=== PATIENT | male | born 1995 | race Caucasian/White ===

== ENCOUNTER 2023-10-18 16:18 | Outpatient (AMB) | payer OTHER, SELFPAY ==
--- NOTE | 2023-10-18 16:29 | MHC.OFFWIV ---
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 He is complaining of pain and swelling in the basilar joint. PFSH Social History Patient Tobacco Use Status: Never used Tobacco Review of Systems Musc Reports arthralgias and Reports joint swelling Physical Exam Vital Signs: Last Vital Signs Temp 97.7 F 10/18/23 16:34 Pulse 99 10/18/23 16:34 BP 140/90 H 10/18/23 16:34 Pulse Ox 98 10/18/23 16:34 Oxygen Delivery Method Room Air 10/18/23 16:34 BMI result Body Mass Index 38.2 Extrem Other: Physical examination of the left hand reveals moderate effusion around the 1st metacarpophalangeal joint and patient were joint. It is quite tender to palpation. He has full range of motion in his wrist and palpation of the scaphoid was negative. Results Reviewed Results Reviewed: Results of the x-ray were reviewed with the patient that were negative for fracture. Assessment & Plan Assessment & Plan (1) Pain of left thumb: Code(s): M79.645 - Pain in left finger(s) (2) Sprain of left thumb: Code(s): S63.602A - Unspecified sprain of left thumb, initial encounter Plan: The patient was given a thumb spica splint to wear for the next 2 weeks and a note for light duty at work. He will apply ice and do gentle [id number] exercises follow-up with his PCP as needed Plan See plan Orders: Orders XR hand LT min 3V Today M79.645 - Pain in left finger(s) Coding Level of Care Code Est Pt Level 3 (56042) Diagnoses Pain of left thumb M79.645 Sprain of left thumb S63.602A
[2023-10-18 16:34] VITALS: BP 140/90; PULSE 99; TEMP 36.5; O2SAT 98; BMI 38.2
== END 2023-10-18 17:01 | disposition home or self-care (01) ==
PROVIDERS: Visit Provider Physician Assistant Medical
DX: M79.645 Pain in left finger(s) (principal); S63.602A Unspecified sprain of left thumb, initial encounter
CPT/HCPCS: 99213

== ENCOUNTER 2023-10-18 16:44 | Outpatient (REF) | payer OTHER, SELFPAY ==
--- NOTE | ~2023-10-18 | XR_ITS ---
EXAMINATION: XR HAND, LEFT CLINICAL INFORMATION: Left finger pain COMPARISON: None available. TECHNIQUE: PA, lateral, and oblique views of the left hand. FINDINGS: BONES: Bony structures are intact. There is no focal bone destruction or periosteal reaction seen. JOINTS: Alignment of joints is normal. SOFT TISSUE: Soft tissue is normal. No radiopaque foreign body or abnormal air collection is seen. XR/XR hand LT min 3V IMPRESSION: 1. Normal x-rays of left hand. No fracture or dislocation or signs of osteomyelitis are found.
== END 2023-10-18 16:45 | disposition home or self-care (01) ==
LOC: HO.HMGCX 16:44
PROVIDERS: Visit Provider Physician Assistant Medical
DX: M79.645 Pain in left finger(s) (principal)
CPT/HCPCS: 73130

== ENCOUNTER 2024-04-23 09:45 | Outpatient (AMB) | payer OTHER, SELFPAY ==
--- NOTE | 2024-04-23 10:35 | AM.OFFWIN_ITS ---
Intake Vital Signs 04/23/24 10:36 Height 5 ft 7 in Weight 252 lb BMI 39.5 BP 128/84 Blood Pressure Location Rt brachial Position Sitting Pulse 109 H Pulse Source Pulse Oximeter Temp 98.6 F Temp Source Oral Pulse Oximetry (%) 98 Oxygen Delivery Method Room Air Intake Visit Reasons: EP- Lower back pain, cannot stand straight Intake Note: pt c/o Lower back pain. Started 7:30 this morning. After using bathroom at work Patient Tobacco Use Status: Never used Tobacco Allergies No Known Allergies Allergy (Verified 04/23/24 10:36) Do you need a note to return to daycare/school/sports/work: Yes HPI EP- Lower back pain, cannot stand straight HPI Details This note is constructed using voice recognition software. 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 The patient is a 28 year old male who presents to the clinic today with low back pain since this morning when he was getting up from the bathroom. He notes that he fells some pain in his mid lumbar spine region, but he was able to shake it off. He continued on an ended up walking towards going back to work when the pain got worse. He notes that he recently strain his upper shoulder about 3 weeks ago and did take some time off to recover for that, so he would like to be able to return to work if possible. He denies numbness or tingling in his legs, inability to walk. He does report that he is having some difficulty feeling like he can straighten out when he walks. He denies any previous trauma or injury to the area. He took 400 mg ibuprofen and did apply ice to the area with seems to help the pain slightly. [facility] Social History Patient Tobacco Use Status: Never used Tobacco Review of Systems Const All systems reviewed & are unremarkable except as noted in HPI and below Physical Exam Vital Signs: Last Vital Signs Temp 98.6 F 04/23/24 10:36 Pulse 109 H 04/23/24 10:36 BP 128/84 04/23/24 10:36 Pulse Ox 98 04/23/24 10:36 Oxygen Delivery Method Room Air 04/23/24 10:36 BMI result Body Mass Index 39.5 Const General: cooperative, healthy appearing, comfortable, no acute distress and alert Orientation/consciousness: patient oriented x3 Limitations: no limitations Resp Effort & Inspection: normal respiratory effort and able to speak in complete sentences Auscultation: clear to auscultation bilaterally Cardio Jugular venous distension: no JVD Palpation: normal PMI Rate: regular rate Heart sounds: S1 normal heart sound present, S2 normal heart sound present, no click, no gallops, no murmurs and no rubs General: Yes no CVA tenderness Back/Spine/Pelvis Other: Tender to palpation, lumbar region paraspinal muscles right more than left, with increased muscle bulging over the right. Intact lateral rotation, flexion, extension. Negative SLR, negative well SLR. Distal neurovascular exam. Back: no CVA tenderness Skin General skin exam: no rashes or lesions noted, elasticity normal and turgor normal Neuro General: patient oriented x3 Extrem General: Yes normal to inspection, Yes full ROM, Yes capillary refill normal and Yes normal exam except as noted Psych Appearance: grossly normal Mental Status: mental status grossly normal Speech and movement: Normal speech and movement present Affect: normal affect Assessment & Plan Assessment & Plan (1) Lumbar back pain: Code(s): M54.50 - Low back pain, unspecified Plan: Advised use of NSAIDs for symptomatic management, continue heat/ice, and topical muscle rubs as needed. Prescribed muscle relaxer for symptomatic management. Advised rest. Provided letter for light duty for work for the remainder of the week. Advised follow up with worsening symptoms or failure to resolve. Plan See above for full details and plan. Medications: New cyclobenzaprine 10 mg PO BEDTIME 5 days PRN 5 tabs 0RF muscle spasm Coding Level of Care Code Est Pt Level 3 (95332) Diagnoses Lumbar back pain M54.50
[2024-04-23 10:36] VITALS: BP 128/84; PULSE 109; TEMP 37; O2SAT 98; BMI 39.5
== END 2024-04-23 11:37 | disposition home or self-care (01) ==
PROVIDERS: Visit Provider Registered Nurse
DX: M54.50 Low back pain, unspecified (principal)
CPT/HCPCS: 99213

== ENCOUNTER 2024-08-03 09:50 | Outpatient (AMB) | payer OTHER, SELFPAY ==
--- NOTE | 2024-08-03 09:57 | AM.OFFWIN_ITS ---
Intake Vital Signs 08/03/24 09:58 Height 5 ft 7 in Weight 251 lb BMI 39.3 BP 130/90 H Blood Pressure Location Rt brachial Position Sitting Pulse 114 H Pulse Source Pulse Oximeter Pulse Oximetry (%) 98 Oxygen Delivery Method Room Air Intake Visit Reasons: EP ?Ear Infection Intake Note: Patient here for right ear pain that has been bothersome since Tuesday Patient Tobacco Use Status: Never used Tobacco Allergies No Known Allergies Allergy (Verified 08/03/24 10:25) Medication List - Last Reconciled 08/03/24 by Betsy Diaz CNP cyclobenzaprine 10 mg PO BEDTIME PRN 5 days Do you need a note to return to daycare/school/sports/work: Yes HPI HPI Comments History of Present Illness Details 29 yo male presents for sick visit. He i s c/o right ear pain x 5 days that followed a 2 day GI bug w/ nausea and diarrhea. He denies fever, chills, CP, SOB, abdominal pain, nausea or vomiting, changes in bladder. [facility] Social History Patient Tobacco Use Status: Never used Tobacco Review of Systems Const All systems reviewed & are unremarkable except as noted in HPI and below Physical Exam Vital Signs: Last Vital Signs Pulse 114 H 08/03/24 09:58 BP 130/90 H 08/03/24 09:58 Pulse Ox 98 08/03/24 09:58 Oxygen Delivery Method Room Air 08/03/24 09:58 BMI result Body Mass Index 39.3 Const General: cooperative, healthy appearing and no acute distress Orientation/consciousness: patient oriented x3 Limitations: no limitations HEENT Head: Yes normal to inspection and Yes normocephalic Ears: TM normal on the left and unable to visualize TM (Complete opacification of the tympanic membrane ) on the right Face and sinus: Yes sinuses nontender Mouth: Normal oral and palatal mucosa present Eyes General: appearance normal, both eyes and all related structures Neck Neck: Yes normal visual inspection, Yes full ROM, Yes no lymphadenopathy and Yes no meningeal signs Chest Chest palpation & inspection: normal inspection of the chest Resp Effort & Inspection: normal respiratory effort, no cough, no respiratory distress and not tachypneic Auscultation: clear to auscultation bilaterally, no crackles, no rhonchi and no wheezes Cardio Rate: regular rate Rhythm: regular rhythm Heart sounds: S1 normal heart sound present, S2 normal heart sound present and no murmurs Peripheral pulses: Peripheral pulses 2+ throughout GI Palpation (GI): Soft to palpation, nontender and no guarding Auscultation: normoactive bowel sounds General: Yes no CVA tenderness Back/Spine/Pelvis Back: no CVA tenderness Skin General skin exam: no rashes or lesions noted and turgor normal Neuro General: patient oriented x3, gait normal and no meningeal signs Extrem General: Yes normal to inspection, Yes full ROM and Yes capillary refill normal Psych Appearance: well kempt Mental Status: mental status grossly normal Attitude: cooperative Assessment & Plan Assessment & Plan (1) Otitis media due to H1N1 influenza virus: Code(s): J10.83 - Influenza due to other identified influenza virus with otitis media Plan: 29 yo male w/ 5 day right ear pain following GI virus, upon physical exam right ear with Complete opacification of the tympanic membrane. Will treat with 7 day dose of Augmentin bid, encouraged to take w/ food to reduce GI upset. Will also send Rx for debrox gtts to help remove ear wax. Encouraged to return to office, or f/u w/ PCP if symptoms unresolved or worsen. Medications: New amoxicillin-pot clavulanate 875-125 mg 1 tab PO BID 14 tabs 0RF 7 days J10.83 - Influenza due to other identified influenza virus with otitis media carbamide peroxide 6.5% (Debrox) 5 drps otic (ear) right DAILY 15 mL 0RF 4 days H61.21 - Impacted cerumen, right ear Coding Level of Care Code Est Pt Level 3 (58325) Diagnoses Otitis media due to H1N1 influenza virus J83
[2024-08-03 09:58] VITALS: BP 130/90; PULSE 114; O2SAT 98; BMI 39.3
== END 2024-08-03 11:23 | disposition home or self-care (01) ==
PROVIDERS: Visit Provider Nurse Practitioner Acute Care
DX: J10.83 Influenza due to other identified influenza virus with otitis media (principal)

== ENCOUNTER 2025-07-02 14:45 | Emergency (ER) | payer OTHER, SELFPAY ==
--- NOTE | ~2025-07-02 | XR_ITS ---
EXAMINATION: XR LUMBOSACRAL SPINE CLINICAL INFORMATION: back pain COMPARISON: None available. TECHNIQUE: Three views of the lumbosacral spine. FINDINGS: There are 5 nonrib-bearing lumbar segments. Vertebral body height and alignment is preserved. Disc spaces are preserved. No degenerative changes are seen. XR/XR lumbar spine 2-3V IMPRESSION: Unremarkable lumbar spine Electronically signed by: Ernst Bernabe MD 07/02/2025 04:37 PM EDT
--- NOTE | ~2025-07-02 | XR_ITS ---
EXAMINATION: XR THORACIC SPINE CLINICAL INFORMATION: back pain COMPARISON: None available. TECHNIQUE: 3 views of the thoracic spine were obtained. FINDINGS: Mild degenerative changes are present in the midthoracic spine where there are anterior endplate osteophytes. There is mild wedging of a mid thoracic to body. No other deformities are evident. XR/XR thoracic spine 3V IMPRESSION: There is mild wedging of a mid thoracic vertebral body, approximately T7. This is likely chronic and degenerative, but mild compression fracture is not ruled out. Mild multilevel degenerative changes are present in the midthoracic spine. Electronically signed by: Ernst Bernabe MD 07/02/2025 04:39 PM EDT
[2025-07-02 14:57] VITALS: BP 143/87; PULSE 103; RESP 18; TEMP 36.7; O2SAT 97; BMI 39.3
--- NOTE | 2025-07-02 15:29 | ED.GENADULT ---
HPI - General Adult General Chief complaint: Back Pain/Injury Stated complaint: Back Pain Time Seen by Provider: 07/02/25 16:57 Source: patient Mode of arrival: ambulatory Limitations: no limitations History of Present Illness ED Provider: Santhosh Mathews HPI narrative: 29 yold male presents to the ED for middle upper back this morning that is worse on movement. patient did an awarkward movement while sleeping and has pain ever since. Patient denies any blunt trauma, abdominal pain, nausea, vomitting, flank pain, fever, chills, dysuria, hematuria, urinary/bowel inconitenence, IV drug use, pluerisy, chest pain, leg swelling, calf pain or immuno compromised diseases. Related Data Previous Rx's ?Medication ?Instructions ?Recorded cyclobenzaprine 10 mg tablet 10 mg PO BEDTIME PRN muscle spasm 04/23/24 5 days #5 tabs amoxicillin 875 mg-potassium 1 tab PO BID 7 days #14 tabs 08/03/24 clavulanate 125 mg tablet carbamide peroxide 6.5 % ear drops 5 drp otic (ear) right DAILY 4 08/03/24 (Debrox) days #15 mL cyclobenzaprine 10 mg tablet 10 mg PO BEDTIME PRN muscle spasm 07/02/25 #10 tabs lidocaine 4 % topical patch 1 patch topical DAILY PRN pain #15 07/02/25 ea naproxen 500 mg tablet 500 mg PO BID PRN pain #14 tabs 07/02/25 Allergies Allergy/AdvReac Type Severity Reaction Status Date / Time No Known Allergies Allergy Verified 07/02/25 14:59 Review of Systems Review of Systems: back pain Yes all other systems are reviewed and are negative ON LICENSE OF [facility] Social History Social History Patient Tobacco Use Status: Never used Tobacco Advance Directives: No Advance Directives Information Provided: No Physical Exam ED Vital Signs: Vital Signs - 24 hr 07/02/25 14:57 Temperature 98.1 F Pulse Rate 103 H Respiratory Rate 18 Blood Pressure 143/87 H Pulse Oximetry 97 Oxygen Delivery Method Room Air BMI result Body Mass Index 39.3 Const General: cooperative, healthy appearing, comfortable, no acute distress, well developed, alert, awake and Physically active Orientation/consciousness: patient oriented x3 HENMT Head: Yes normal to inspection, Yes No palpable skull fracture present and Yes normocephalic Eyes General: appearance normal, both eyes and all related structures Neck Neck: Yes normal visual inspection, Yes full ROM, Yes no lymphadenopathy, Yes no meningeal signs, Yes trachea midline, Yes supple, No anterior neck swelling and No tender Chest Chest palpation & inspection: normal inspection of the chest and normal palpation of entire chest wall Resp Effort & Inspection: normal respiratory effort and able to speak in complete sentences Auscultation: clear to auscultation bilaterally Cardio Jugular venous distension: no JVD Heart sounds: S1 normal heart sound present and S2 normal heart sound present GI Inspection: Yes normal to inspection Palpation (GI): Soft to palpation, not firm, nontender and no guarding General: Yes no CVA tenderness Back/Spine/Pelvis Back: no CVA tenderness and back tenderness (thoracic) Skin General skin exam: no rashes or lesions noted, elasticity normal and turgor normal Neuro General: patient oriented x3, gait normal, tone normal, moves all extremities, Normal light touch and pain sensation, no meningeal signs, no focal motor deficits and CN's II-XI intact bilaterally Extrem General: Yes normal to inspection, Yes full ROM and Yes capillary refill normal Psych Appearance: grossly normal, well kempt and not disheveled Course Course Course Narrative: RME: 29-year-old male presents to ED for middle to upper low back pain worse on movement. Patient does heavy lifting at work. Patient denies any blunt trauma, abdominal pain or genitourinary symptoms. X-ray is ordered Medical Decision Making Medical Decision Making MDM Narrative: 29 yold male presents to the ED for right sided back pain that is worse on movememt. patient denies any recent blunt trauma, abdominal pain, nausea, vomitting, dysuria, hemtaruia, urinary/bowel incontinence, saddle anesthesia, history of IV drug use, pleurisy, shortness of breath, chest pain, or any other symptoms. X-ray shows possible she 7 compression fracture. Patient will be discharged with pain medication, muscle relaxer and lidocaine patch. Patient does lot of heavy lifting at work. not suspecting caudina equina, epidrual abscess, ostoemyelitits, kidney stones, pylenophritits, PE, or any other life threatening etiologies. Differential Diagnosis Differential Diagnoses: The differential diagnosis associated with the presentation includes (Fracture, sprain, back spasm, dislocation) Admission/Observation Consideration of admission/observation: Escalation of care including admission/observation considered Independent Interpretation I performed an independent interpretation of an: Plain X-Ray Radiology Impression Discussion of test interpretation with radiology: I have reviewed the radiologist's reading. Independent Historian Clinical information obtained from an independent historian. History obtained from or confirmed by: Other (patient) Prescription Management I considered prescription management with: Pain Medication Discharge Plan Discharge Clinical Impression: Thoracic radiculopathy, Wedge compression fracture of T7 vertebra Patient Disposition: Home, Self-Care Instructions: Vertebral Compression Fracture (ED), Arthralgia (ED), Back Pain (ED), Lower Back Exercises (ED) Additional Instructions: X-ray states possible T7 compression fracture and also shows some arthritis. Recommend follow up with primary care provider spinal surgeon. Return to the ED immediately for worsening back pain, urinary/bowel incontinence, paralysis tingling of upper and lower extremities, nausea, vomiting, abdominal pain, dysuria, hematuria, fever, chills, flank pain, chest pain, shortness of breath, pleurisy, or any other concerning symptoms. Ordering Physician: Santhosh Mathews Date of Service: 07/02/25 Procedure(s): XR thoracic spine 3V Accession Number(s): [id number] cc: Santhosh Mathews~ Reason for Exam: back pain EXAMINATION: XR THORACIC SPINE CLINICAL INFORMATION: back pain COMPARISON: None available. TECHNIQUE: 3 views of the thoracic spine were obtained. FINDINGS: Mild degenerative changes are present in the midthoracic spine where there are anterior endplate osteophytes. There is mild wedging of a mid thoracic to body. No other deformities are evident. XR/XR thoracic spine 3V IMPRESSION: There is mild wedging of a mid thoracic vertebral body, approximately T7. This is likely chronic and degenerative, but mild compression fracture is not ruled out. Mild multilevel degenerative changes are present in the midthoracic spine. Electronically signed by: Ernst Bernabe MD 07/02/2025 04:39 PM EDT Ordering Physician: Santhosh Mathews Date of Service: 07/02/25 Procedure(s): XR lumbar spine 2-3V Accession Number(s): [id number] cc: Santhosh Mathews~ Reason for Exam: back pain EXAMINATION: XR LUMBOSACRAL SPINE CLINICAL INFORMATION: back pain COMPARISON: None available. TECHNIQUE: Three views of the lumbosacral spine. FINDINGS: There are 5 nonrib-bearing lumbar segments. Vertebral body height and alignment is preserved. Disc spaces are preserved. No degenerative changes are seen. XR/XR lumbar spine 2-3V IMPRESSION: Unremarkable lumbar spine Electronically signed by: Ernst Bernabe MD 07/02/2025 04:37 PM EDT RP Prescriptions: New cyclobenzaprine 10 mg tablet 10 mg PO BEDTIME PRN (Reason: muscle spasm) Qty: 10 0RF Rx Instructions: side effect is drowsiness. Do not take at work or while driving. lidocaine 4 % adhesive patch,medicated 1 patch topical DAILY PRN (Reason: pain) Qty: 15 0RF naproxen 500 mg tablet 500 mg PO BID PRN (Reason: pain) Qty: 14 0RF No Action cyclobenzaprine 10 mg tablet 10 mg PO BEDTIME PRN (Reason: muscle spasm) 5 Days Qty: 5 0RF amoxicillin-pot clavulanate 875-125 mg tablet 1 tab PO BID 7 Days Qty: 14 0RF Debrox 6.5 % drops 5 drp otic (ear) right DAILY 4 Days Qty: 15 0RF Referrals: Bryon Menjivar MD, PhD [Physician, Neuro Spine] - 2 days Referral Note: Back pain. Possible compression fracture. Radiculopathy Clinical Impression: Wedge compression fracture of T7 vertebra; Thoracic radiculopathy Stand Alone Forms: Work/School Release Discharge Date/Time: 07/02/25 17:32 Print Language: Albanian
== END 2025-07-02 17:32 | disposition home or self-care (01) ==
PROVIDERS: Emergency Provider Emergency Medicine
DX: M54.14 Radiculopathy, thoracic region (principal); M48.54XA Collapsed vertebra, not elsewhere classified, thoracic region, initial encounter for fracture; M54.50 Low back pain, unspecified
CPT/HCPCS: 72072; 72100; 99281; 99283

== ENCOUNTER → 2025-07-02 15:26 | Outpatient (BNV) | payer OTHER, SELFPAY | PROVIDERS: Emergency Provider Emergency Medicine; Visit Provider Radiology Diagnostic Radiology | DX: M54.50 Low back pain, unspecified (principal); S22.060A Wedge compression fracture of T7-T8 vertebra, initial encounter for closed fracture; M51.34 Other intervertebral disc degeneration, thoracic region | CPT/HCPCS: 72072; 72100 ==